=== PATIENT | male | born 1955 ===

== ENCOUNTER 2019-10-24 06:57 | Day surgery (SDC) | payer OTHER ==
[~2019-10-24 06:57] MED LIST: DEPAKOTE ER500 MG PO; INDAPAMIDE1.25 MG PO; KEPPRA1000 MG PO; LIPITOR20 MG PO; METFORMIN HCL1000 M2 PO; NORVASC10 MG PO; TOPROL XL200 MG PO; ZESTRIL20 MG PO
== END 2019-10-24 12:00 | disposition home or self-care (01) ==
LOC: CIR.AMB 06:57 → ADM 10:30 → CIR.AMB 10:30
DX: M47.812 Spondylosis without myelopathy or radiculopathy, cervical region (principal)